=== PATIENT | female | born 1975 | race Caucasian/White ===

== ENCOUNTER 2020-04-29 10:11 | Emergency (ER) | payer OTHER, SELFPAY ==
--- NOTE | ~2020-04-29 | XR_ITS ---
XR hand RT min 3V, XR hand LT min 3V 04/29/2020 10:58 (accession [id number]), 04/29/2020 10:57 (accession [id number]) Indication: Bilateral hand pain after fall Procedure: AP 3 views each hand Comparison: No prior studies for comparison. Findings: There is a nondisplaced intra-articular fracture dorsal base right fifth distal phalanx. No other fractures identified. No foreign bodies. Old right ulnar styloid avulsion fracture. Impression: 1: Nondisplaced intra-articular fracture dorsal base right fifth distal phalanx. Reviewed, dictated and finalized at location A. Impression: 1: Nondisplaced intra-articular fracture dorsal base right fifth distal phalanx . Impression: 1: Nondisplaced intra-articular fracture dorsal base right fifth distal phalanx .
[2020-04-29 10:16] VITALS: BP 152/69; PULSE 102; RESP 18; TEMP 36.8; O2SAT 100
[2020-04-29 10:30] VITALS: BP 105/70; PULSE 80
--- NOTE | 2020-04-29 10:34 | ED.GENADULT ---
HPI - General Adult General Chief complaint: Extremity Injury, Upper Stated complaint: right hand pinky injury Time Seen by Provider: 04/29/20 10:35 Source: patient and RN notes reviewed Mode of arrival: ambulatory Limitations: no limitations History of Present Illness HPI narrative: 45-year-old female presents with complaints of RT 5th (baby) and LT 3rd (middle) fingers pain and swelling for 1 day. Reina says she tripped over dog and reached out to break her fall and hit hands against wall. Ibuprofen with little relief. Denies numbness or tingling. No weakness of fingers. Denies fever or chills. Denies immobility. Exacerbation is movement and palpation of finger. Relieving factor is rest. Dominant hand is RIGHT HAND. Denies break in skin or drainage. Denies hitting head or loss of consciousness. LMP January or January but is irregular due to chcf usage of Depo-Provera. The patient reports she have not been diagnosed with COVID-19. The patient reports she is not waiting for the results of a COVID-19 lab test. The patient reports she do not have fever, chills, weakness, or fatigue. The patient reports she do not have a new or worsening cough or shortness of breath. Denies chest pain. The patient reports she do not have any rhinorrhea, congestion, sore throat, loss of taste, nausea, vomiting, abdominal pain, and diarrhea. Tolerating po intake well. Denies recent traveling. Denies concerns for COVID-19 or exposures been home with limited outdoor exposure except for essential household needs, work, and return home. At this time, patient is not suspected of having COVID-19. Some parts of this dictation were generated by voice recognition software and may contain typographical and/or grammatical inaccuracies. Related Data Allergies Allergy/AdvReac Type Severity Reaction Status Date / Time No Known Allergies Allergy Verified 04/29/20 10:21 Review of Systems Review of Systems: Narrative: CONSTITUTIONAL: Denies fever, chills, sweats. EYES: Denies visual changes, redness, discharge. ENT: Denies rhinorrhea, congestion, sore throat, otalgia. CARDIOVASCULAR: Denies chest pain, palpitations, edema. RESPIRATORY: Denies dyspnea, wheezing, cough. GASTROINTESTINAL: Denies abdominal pain, nausea, vomiting, diarrhea. GENITOURINARY: Denies dysuria, hematuria, abnormal discharge. SKIN: Denies rash or itching. MUSCULOSKELETAL: Denies acute back pain or myalgia. Complains ofRT 5th (baby) and LT 3rd (middle) fingers pain and swelling. NEUROLOGIC: Denies numbness or focal weakness. PSYCHIATRIC: Denies anxiety or depression. All systems reviewed & are unremarkable except as noted in HPI and below PMFSH Past Medical History Medical History (Updated 04/30/20 @ 00:00 by Juliocesar Stewart) Hand injury RT Surgical History Surgical History (Updated 04/29/20 @ 18:07 by KIKI Kumar) History of cholecystectomy History of hand surgery Right third finger (middle) surgery History of tubal ligation Family History Family History (Updated 04/29/20 @ 18:08 by KIKI Kumar) Father Acute myocardial infarction Hypertension Heart disease Mother Ovarian cancer Social History Social History (Updated 04/29/20 @ 18:09 by KIKI Kumar) Smoking packs per day: 1 Smoking cigarettes per day: 20.0 Years smoked: 20 Smoking pack-years: 20.00 Smoking status: Current every day smoker Tobacco type: cigarettes Second hand tobacco smoke exposure: Yes Alcohol intake: current Substance use: never Gender identity (if verbalized by the patient): Female Comments At time of signature, agree with nurse past medical, surgical, social, and family history. There is no relevant family history pertinent to the presenting complaint. Exam Narrative: Exam Narrative: GENERAL: This is a well-nourished, well-developed patient, in no apparent distress. HEAD: normocephalic, atraumatic.
== END 2020-04-29 11:30 | disposition home or self-care (01) ==
PROVIDERS: Emergency Provider Nurse Practitioner Family
DX: S62.666A Nondisplaced fracture of distal phalanx of right little finger, initial encounter for closed fracture (principal); W01.0XXA Fall on same level from slipping, tripping and stumbling without subsequent striking against object, initial encounter; F17.210 Nicotine dependence, cigarettes, uncomplicated
CPT/HCPCS: 73130; 81025; 99214; G0463

== ENCOUNTER 2020-12-18 15:18 | Emergency (ER) | payer OTHER, SELFPAY ==
--- NOTE | ~2020-12-18 | XR_ITS ---
EXAMINATION: XR ribs RT 2V EXAM DATE: 12/18/2020 15:46 INDICATION: Cough, right-sided back pain since. TECHNIQUE: Frontal projection of the upper right ribs, frontal projection of the lower right ribs, ob lique projection of the right ribs, without chest x-ray(s) for interpretation. Correlation is made to chest x-ray 04/22/2016. FINDINGS: There are no displaced acute right rib fractures identified. There is no soft tissue abno rmality seen. There are cholecystectomy clips. IMPRESSION: No displaced right rib fractures. Reviewed, dictated and finalized at location A.
[2020-12-18 15:25] VITALS: BP 128/89; PULSE 86; RESP 16; TEMP 36.7; O2SAT 98
--- NOTE | 2020-12-18 15:29 | ED.BACK ---
HPI - Back Pain/Injury General Chief Complaint: Back Pain/Injury Stated Complaint: right back rib pain Time Seen by Provider: 12/18/20 15:30 Source: patient and RN notes reviewed Mode of arrival: ambulatory Limitations: no limitations History of Present Illness HPI Narrative: 45-year-old female presents concern for right chest back/rib pain. Reports she was bending over cleaning when she coughed this morning and had sudden pain in the rib area. Reports bending, twisting, deep breathing, coughing exacerbate pain. Reports she took 400 mg ibuprofen without relief. She denies any shortness of breath, recent history of cough or upper respiratory infections. Denies any chest pain. MD elicited complaint: back pain Related Data Allergies Allergy/AdvReac Type Severity Reaction Status Date / Time No Known Allergies Allergy Verified 04/29/20 10:21 Review of Systems Review of Systems: Narrative: CONSTITUTIONAL: Denies malaise, chills, sweats, or fever. ENT: Denies rhinorrhea, congestion, sinus pain, otalgia or sore throat. CARDIOVASCULAR: Denies chest pain, palpitations, or edema. RESPIRATORY: Denies cough or dyspnea. GASTROINTESTINAL: Denies abdominal pain, nausea, vomiting, diarrhea GENITOURINARY: Denies dysuria or hematuria. SKIN: Denies bruising, redness, rash MUSCULOSKELETAL: Reports right backslash rib pain NEUROLOGIC: Denies numbness, weakness All systems reviewed & are unremarkable except as noted in HPI and below PMFSH Past Medical History Medical History (Updated 12/18/20 @ 15:57 by Ladonna Winslow NP) Hand injury RT Surgical History Surgical History (Updated 04/29/20 @ 18:07 by KIKI Kumar) History of cholecystectomy History of hand surgery Right third finger (middle) surgery History of tubal ligation Family History Family History (Updated 04/29/20 @ 18:08 by KIKI Kumar) Father Acute myocardial infarction Hypertension Heart disease Mother Ovarian cancer Social History Social History (Updated 04/29/20 @ 18:09 by KIKI Kumar) Smoking packs per day: 1 Smoking cigarettes per day: 20.0 Years smoked: 20 Smoking pack-years: 20.00 Smoking status: Current every day smoker Tobacco type: cigarettes Second hand tobacco smoke exposure: Yes Alcohol intake: current Substance use: never Gender identity (if verbalized by the patient): Female Comments At time of signature, agree with nursing past medical, surgical, social and family history. There is no relevant family history pertinent to the presenting complaint Exam Narrative: Exam Narrative: GENERAL: Well-appearing, well-nourished, and in no acute distress. HEAD: Normocephalic, atraumatic. EYES: PERRLA, conjunctivae clear ENT: Nares clear. Mucous membranes moist. NECK: Supple. CHEST: No respiratory distress. Clear to auscultation. No bony deformities, no asymmetry. Speaks in full sentences. HEART: Regular rate and rhythm. No murmur heard. EXTREMITIES: Normal range of motion. No edema. Normal strength and sensation. Tenderness upon palpation to right posterior ribs SKIN: Warm, dry, no rash. NEURO: Alert and oriented x3. PSYCH: Normal mood and affect Course Course Emergency Course: Patient is aware of diagnosis, understands and agrees to treatment plan. Anticipatory guidance given. Patient agrees to follow-up as directed and is aware of reasons to seek care at the emergency department. Portions of this record may have been created with voice recognition software Vital Signs Vital signs: Reviewed. MDM - Back Pain/Injury MDM Narrative Medical decision making narrative: No risk factors or findings concerning for epidural abscess, diskitis, vertebral osteomyelitis, cord compression, cauda equina, vertebral fracture or bone malignancy, AAA, or pyelonephritis. Patient instructed to consider further imaging and workup through their primary care physician as an outpatient if symptoms
== END 2020-12-18 16:05 | disposition home or self-care (01) ==
PROVIDERS: Emergency Provider Nurse Practitioner
DX: R07.81 Pleurodynia (principal); F17.210 Nicotine dependence, cigarettes, uncomplicated
CPT/HCPCS: 71100; 99213; G0463

== ENCOUNTER 2021-05-05 14:08 | Emergency (ER) | payer OTHER, SELFPAY ==
--- NOTE | ~2021-05-05 | XR_ITS ---
EXAMINATION: XR ribs LT 2V INDICATION: Left rib pain TECHNIQUE: 3 views of the left ribs were obtained. COMPARISON: None. FINDINGS: No displaced rib fracture is identified. The visualized lungs are free of acute opacities. There is no pleural effusion or pneumothorax. The cardiomediastinal silhouette is normal. IMPRESSION: 1. No acute cardiopulmonary abnormality or evidence of displaced rib fracture. Reviewed, dictated and finalized at location A.
[2021-05-05 14:15] VITALS: BP 113/84; PULSE 104; RESP 16; TEMP 36.9; O2SAT 99
--- NOTE | 2021-05-05 14:36 | ED.BACK ---
HPI - Back Pain/Injury General Chief Complaint: Wound/Laceration Stated Complaint: rib inj History of Present Illness HPI Narrative: This is a 46-year-old female comes in complaining of rib pain states that she was climbing in a car and she heard a pop and she has been having rib pain it hurts when she takes a deep breath patient is worried that she may have a fracture Related Data Home Medications Medication Instructions Recorded Confirmed No Home Medications 05/05/21 05/05/21 Allergies Allergy/AdvReac Type Severity Reaction Status Date / Time No Known Allergies Allergy Verified 05/05/21 14:17 Review of Systems Constitutional: Comments: CONSTITUTIONAL: Denies fever, chills, or sweats. EYES: Denies visual changes, redness, or discharge. ENT: Denies rhinorrhea, congestion, sore throat, or otalgia. CARDIOVASCULAR:Denies chest pain, palpitations, or edema. Rib pain RESPIRATORY: Denies cough or dyspnea. GASTROINTESTINAL: Denies abdominal pain, nausea, vomiting, or diarrhea. GENITOURINARY: Denies dysuria or hematuria. SKIN:[Denies rash or itching. MUSCULOSKELETAL:Denies back pain, joint pain, or myalgia. NEUROLOGIC: Denies headache, numbness, or weakness. PSYCHIATRIC:Denies anxiety or depression [facility] Past Medical History Medical History (Updated 05/06/21 @ 00:01 by Juliocesar Stewart) Hand injury RT Surgical History Surgical History (Updated 04/29/20 @ 18:07 by KIKI Kumar) History of cholecystectomy History of hand surgery Right third finger (middle) surgery History of tubal ligation Family History Family History (Updated 04/29/20 @ 18:08 by KIKI Kumar) Father Acute myocardial infarction Hypertension Heart disease Mother Ovarian cancer Social History Social History (Updated 04/29/20 @ 18:09 by KIKI Kumar) Smoking packs per day: 1 Smoking cigarettes per day: 20.0 Years smoked: 20 Smoking pack-years: 20.00 Smoking status: Current every day smoker Tobacco type: cigarettes Second hand tobacco smoke exposure: Yes Alcohol intake: current Substance use: never Gender identity (if verbalized by the patient): Female Comments At time as signature, I have reviewed and agree with nursing past medical, social, surgical and family history. Please see nursing chart for further information. There is no relevant family history pertinent to the presenting complaint. Exam Psych: Other: GENERAL:Well-appearing, well-nourished, and in no acute distress. HEAD:Normocephalic, atraumatic. EYES: PERRLA and EOMI. ENT: Nares clear, no rhinorrhea or epistaxis. Mucous membranes moist. NECK: Supple. CHEST: Clear to auscultation. No respiratory distress. HEART: Regular rate and rhythm Normal peripheral pulses. ABDOMEN: Soft, nontender, nondistended, normal active bowel sounds. EXTREMITIES: Normal range of motion. No edema. SKIN: Warm, dry, no rash. NEURO: No focal deficits. Alert and oriented x3. 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 I would is fine she is she is retired Vital Signs Vital signs: Vital Signs Temperature 98.5 F 05/05/21 14:15 Pulse Rate 104 H 05/05/21 14:15 Respiratory Rate 16 05/05/21 14:15 Blood Pressure 113/84 05/05/21 14:15 Pulse Oximetry 99 05/05/21 14:15 Temperature 98.5 F 05/05/21 14:15 Pulse Rate 104 H 05/05/21 14:15 Respiratory Rate 16 05/05/21 14:15 Blood Pressure 113/84 05/05/21 14:15 Pulse Oximetry 99 05/05/21 14:15 MDM - Back Pain/Injury Differential Diagnosis Differential diagnosis: Likely lumbar radiculopathy and thoracic back pain Discharge Plan Discharge Clinical Impression: Muscle ache, Pain in rib Patient Disposition: Home, Self-Care Condition: Stable Instructions: Antibiotic Form, Musculoskeletal Pain (ED), Muscle Spasm (ED) Additional Instructions: Ice to the area 20-30 minutes 4-6 times a day Tylenol for lesser pain Ibuprofen re
== END 2021-05-05 15:10 | disposition home or self-care (01) ==
PROVIDERS: Emergency Provider Nurse Practitioner Family
DX: R07.81 Pleurodynia (principal); F17.210 Nicotine dependence, cigarettes, uncomplicated
CPT/HCPCS: 71100; 99213; G0463

== ENCOUNTER 2021-08-09 08:23 | Emergency (ER) | payer OTHER, SELFPAY ==
--- NOTE | ~2021-08-09 | XR_ITS ---
EXAMINATION: XR chest 2V DATE: 08/09/2021 09:17 INDICATION: Expiratory wheezing. Post COVID-19 pneumonia. TECHNIQUE: Frontal and lateral views of the chest were obtained. COMPARISON: Left rib radiographs 05/05/2021 FINDINGS: The chest demonstrates clear lungs without pneumonia, pleural effusion, or pneumothorax. Th e heart size is normal. Surgical clips in the right upper quadrant are likely from cholecystectomy. IMPRESSION: 1. No acute cardiopulmonary disease. Reviewed, dictated and finalized at location A. ANALYSIS MANAGER
[2021-08-09 08:34] VITALS: BP 128/105; PULSE 98; RESP 16; TEMP 36.7; O2SAT 98
--- NOTE | 2021-08-09 08:46 | ED.EAR ---
HPI - Ear Problem General Chief complaint: Upper Respiratory Infection Stated complaint: Ear Pain Time Seen by Provider: 08/09/21 08:48 Source: patient and RN notes reviewed Mode of arrival: ambulatory Limitations: no limitations History of Present Illness HPI Narrative: 46-year-old female presented for complaints of body aches, ears ringing, dizziness, and increased sinus pressure for the last 3 days. She endorses recent diagnosis of Covid about 1 week ago, and states 2 days ago she was tested negative. She endorses occasional chest tightness, wheezing, and increased mucus production with cough. She notes she smokes 1 pack/day. She has not been vaccinated for Covid or flu. She has been taking Tylenol and NyQuil with no relief in symptoms. MD Complaint: ear pain Related Data Allergies Allergy/AdvReac Type Severity Reaction Status Date / Time No Known Allergies Allergy Verified 08/09/21 08:42 Review of Systems Review of Systems: CONSTITUTIONAL: Denies malaise, chills, sweats, or fever. EYES: Denies visual changes, redness, or discharge. ENT: Reports ear pain rhinorrhea, congestion, sinus pain, and sore throat. CARDIOVASCULAR: Denies chest pain, palpitations, or edema. RESPIRATORY: Endorses cough and dyspnea. GASTROINTESTINAL: Denies abdominal pain, nausea, vomiting, diarrhea SKIN: Denies rash or itching. MUSCULOSKELETAL: Denies myalgia. NEUROLOGIC: Denies headache. All systems reviewed & are unremarkable except as noted in HPI and below PMFSH Past Medical History Medical History (Updated 08/09/21 @ 09:28 by Dedra Gonzalez APRN) Hand injury RT Surgical History Surgical History (Updated 04/29/20 @ 18:07 by KIKI Kumar) History of cholecystectomy History of hand surgery Right third finger (middle) surgery History of tubal ligation Family History Family History (Updated 04/29/20 @ 18:08 by KIKI Kumar) Father Acute myocardial infarction Hypertension Heart disease Mother Ovarian cancer Social History Social History (Updated 04/29/20 @ 18:09 by KIKI Kumar) Smoking packs per day: 1 Smoking cigarettes per day: 20.0 Years smoked: 20 Smoking pack-years: 20.00 Smoking status: Current every day smoker Tobacco type: cigarettes Second hand tobacco smoke exposure: Yes Alcohol intake: current Substance use: never Gender identity (if verbalized by the patient): Female Comments At time of signature, agree with nursing past medical, surgical, social and family history. There is no relevant family history pertinent to the presenting complaint Exam Narrative: GENERAL: Well-appearing, well-nourished, and in no acute distress. HEAD: Normocephalic EYES: PERRLA, conjunctivae clear ENT: Nares clear. Mucous membranes moist. TM pearly alonzo with dull light reflex bilaterally; no tragal tenderness. Oropharynx not erythematous without lesions. Tonsils not enlarged and without exudate, no drooling, no hoarseness, no trismus, uvula midline. NECK: Supple. No lymphadenopathy CHEST: Clear to auscultation, breath sounds equal. No wheezing, rhonchi, rales, or stridor. No respiratory distress, speaks in full sentences. HEART: Regular rate and rhythm. No murmur heard. SKIN: Warm, dry, no rash. NEURO: Alert and oriented x3. PSYCH: Normal mood and affect Course Course Emergency Course: Patient is aware of diagnosis, understands and agrees to treatment plan. Anticipatory guidance given. Patient agrees to follow-up as directed and is aware of reasons to seek care at the emergency department. Portions of this record may have been created with voice recognition software Level of Care: Express Care Visit Vital Signs Vital signs: Vital Signs Temperature 98.1 F 08/09/21 08:34 Pulse Rate 98 08/09/21 08:34 Respiratory Rate 16 08/09/21 08:34 Blood Pressure 128/105 H 08/09/21 08:34 Pulse Oximetry 98 08/09/21 08:34 Temperature 98.1 F
[2021-08-09 09:32] VITALS: BP 132/102
== END 2021-08-09 09:32 | disposition home or self-care (01) ==
PROVIDERS: Emergency Provider Nurse Practitioner Family
DX: J06.9 Acute upper respiratory infection, unspecified (principal); F17.210 Nicotine dependence, cigarettes, uncomplicated; Z86.16 Personal history of COVID-19
CPT/HCPCS: 71046; 99213; G0463

== ENCOUNTER 2021-09-10 08:10 | Emergency (ER) | payer OTHER, SELFPAY ==
[2021-09-10 08:18] VITALS: BP 118/75; PULSE 87; RESP 20; TEMP 36.4; O2SAT 100
--- NOTE | 2021-09-10 10:14 | ED.BACK ---
HPI - Back Pain/Injury General Chief Complaint: Back Pain/Injury Stated Complaint: Back pain Time Seen by Provider: 09/10/21 08:33 Source: patient and RN notes reviewed Mode of arrival: ambulatory Limitations: no limitations History of Present Illness HPI Narrative: Patient presents today complaining of right-sided low back pain that radiates to the right buttock and hip. Pain started suddenly 3 days ago which he rolled over in bed. Denies numbness or tingling in the legs or feet or genitals. Denies any loss of bowel or bladder control. She currently rates her pain 6/10, which increases with standing or walking. She has tried heat, Tylenol or ibuprofen without relief. MD elicited complaint: back pain Related Data Allergies Allergy/AdvReac Type Severity Reaction Status Date / Time No Known Allergies Allergy Verified 08/09/21 08:42 Review of Systems Review of Systems: CONSTITUTIONAL: Denies body aches, fever, chills, or sweats. EYES: Denies visual changes, redness, or discharge. ENT: Denies rhinorrhea, congestion, sore throat, or otalgia. CARDIOVASCULAR: Denies chest pain, palpitations, or edema. RESPIRATORY: Denies cough or dyspnea. GASTROINTESTINAL: Denies abdominal pain, nausea, vomiting, or diarrhea. GENITOURINARY: Denies dysuria or hematuria. SKIN: Denies rash, itching, or wounds. MUSCULOSKELETAL: Denies joint pain, or myalgia.+ Back pain NEUROLOGIC: Denies headache, numbness, tingling, or weakness. PSYCH: Denies depression or anxiety. [facility] Past Medical History Medical History Hand injury RT Surgical History Surgical History History of cholecystectomy History of hand surgery Right third finger (middle) surgery History of tubal ligation Family History Family History Father Acute myocardial infarction Hypertension Heart disease Mother Ovarian cancer Social History Social History Smoking packs per day: 1 Smoking cigarettes per day: 20.0 Years smoked: 20 Smoking pack-years: 20.00 Smoking status: Current every day smoker Tobacco type: cigarettes Second hand tobacco smoke exposure: Yes Alcohol intake: current Substance use: never Gender identity (if verbalized by the patient): Female Comments At time of signature, I have reviewed and agree with nursing past medical, surgical, social and family history unless otherwise noted. Please see nursing chart for further information. There is no relevant family history pertinent to the presenting complaint Exam Narrative: GENERAL: Well-appearing, well-nourished, and in no acute distress. HEAD: Normocephalic, atraumatic. EYES: EOMI. No redness or drainage. Conjunctivae normal. ENT: Mucous membranes pink and moist. NECK: Normal AROM. CHEST: No respiratory distress. MUSCULOSKELETAL: No bony tenderness of the spine. Right lower lumbar paraspinal muscle tenderness with palpable muscle spasm. Tenderness extends to the right SI joint and buttock. Distal sensation intact. Refill normal. Pedal pulses normal. Dorsiflexion and plantarflexion strong and equal against resistance. Patellar reflexes normal. EXTREMITIES: Normal range of motion. No edema. SKIN: Warm, dry, no rash. Capillary refill normal. Normal skin turgor. NEURO: No focal deficits. Alert and oriented x3. Gait steady. PSYCH: Normal affect. No signs of depression or anxiety. Course Course Level of Care: Express Care Visit Vital Signs Vital signs: Vital Signs Temperature 97.6 F 09/10/21 08:18 Pulse Rate 87 09/10/21 08:18 Respiratory Rate 20 09/10/21 08:18 Blood Pressure 118/75 09/10/21 08:18 Pulse Oximetry 100 09/10/21 08:18 Temperature 97.6 F 09/10/21 08:18 Pulse Rate 87 09/10/21 08:18
== END 2021-09-10 09:14 | disposition home or self-care (01) ==
PROVIDERS: Emergency Provider Nurse Practitioner
DX: M54.41 Lumbago with sciatica, right side (principal); F17.210 Nicotine dependence, cigarettes, uncomplicated
CPT/HCPCS: 99213; G0463

== ENCOUNTER 2022-06-12 10:45 | Emergency (ER) | payer OTHER, SELFPAY ==
--- NOTE | 2022-06-12 10:54 | ED.URI ---
HPI - URI/Sore Throat General Chief Complaint: Neck Pain/Injury Stated Complaint: sore gums, swollen lymph node Time Seen by Provider: 06/12/22 10:54 Source: patient and RN notes reviewed History of Present Illness HPI Narrative: patient is a 47-year-old female who presents to urgent care with complaints of sore gums on the right lower as well as a swollen lymph node. Patient states she noticed it on Thursday and she has been taking ibuprofen. Patient denies any fever, nausea or vomiting. No other acute complaints. No acute distress noted. Patient aware of the plan of care. Some parts of this dictation were generated by voice recognition software and may contain typographical and/or grammatical inaccuracies. Related Data Home Medications Medication Instructions Recorded Confirmed valacyclovir 500 mg tablet 500 mg PO DAILY 06/12/22 06/12/22 Allergies Allergy/AdvReac Type Severity Reaction Status Date / Time No Known Allergies Allergy Verified 08/09/21 08:42 Review of Systems Review of Systems: CONSTITUTIONAL: Denies fever, chills, or sweats. EYES: Denies visual changes, redness, or discharge. ENT: Denies rhinorrhea, congestion, sore throat, or otalgia. Reports of right lower gum pain and right lymph node plan CARDIOVASCULAR: Denies chest pain, palpitations, or edema. RESPIRATORY: Denies cough or dyspnea. GASTROINTESTINAL: Denies abdominal pain, nausea, vomiting, or diarrhea. GENITOURINARY: Denies dysuria or hematuria. SKIN: Denies rash or itching. MUSCULOSKELETAL: Denies back pain, joint pain, or myalgia. NEUROLOGIC: Denies headache, numbness, or weakness. All other systems reviewed are negative, except as documented in HPI. [facility] Past Medical History Medical History Hand injury RT Surgical History Surgical History History of cholecystectomy History of hand surgery Right third finger (middle) surgery History of tubal ligation Family History Family History Father Acute myocardial infarction Hypertension Heart disease Mother Ovarian cancer Social History Social History Smoking packs per day: 1 Smoking cigarettes per day: 20.0 Years smoked: 20 Smoking pack-years: 20.00 Smoking status: Current every day smoker Tobacco type: cigarettes Second hand tobacco smoke exposure: Yes Alcohol intake: current Substance use: never Gender identity (if verbalized by the patient): Female Comments At the time of my signature, I reviewed and agree with the nursing past medical, surgical, social, and family history. There is no relevant family history pertinent to the patient complaint. Exam Narrative: GENERAL: This is a well-nourished, well-developed patient, in no apparent distress. HEAD: normocephalic, atraumatic. EYES: PERRL. Sclera clear/white. Vision is grossly intact. EARS: External ears normal, auditory canals clear and without drainage, TMs normal without perforation. Hearing grossly intact. NOSE: External nose normal with no obvious nasal discharge, nares without redness, no rhinorrhea. THROAT: Mucous membranes moist, posterior pharynx clear. moderate postnasal drainage NECK: Neck supple, moderate tender right submandibular lymphadenopathy CARDIOVASCULAR: Regular rate and rhythm without murmurs, gallops, or rubs. RESPIRATORY: Clear to auscultation. Breath sounds equal bilaterally. No wheezes, rales, or rhonchi. SKIN: warm, intact with no suspicious lesions or rash, good texture and turgor. NEURO: awake, alert, and oriented to person, place and time. There were no obvious focal neurologic abnormalities. EXTREMITIES: No clubbing, cyanosis, or edema. Course Course Level of Care: Express Care Visit Vital Signs Vital signs:
[2022-06-12 11:00] VITALS: BP 127/88; PULSE 90; RESP 14; TEMP 36.2; O2SAT 100
== END 2022-06-12 11:25 | disposition home or self-care (01) ==
PROVIDERS: Emergency Provider Nurse Practitioner Family
DX: K05.10 Chronic gingivitis, plaque induced (principal)
CPT/HCPCS: 87081; 87880; 99213; G0463

== ENCOUNTER 2022-09-01 13:38 | Emergency (ER) | payer OTHER, SELFPAY ==
--- NOTE | 2022-09-01 13:39 | ED.EAR ---
HPI - Ear Problem General Chief complaint: Ear Stated complaint: ear pain Time Seen by Provider: 09/01/22 13:39 Source: patient and RN notes reviewed History of Present Illness HPI Narrative: Patient is a 47-year-old female who presents to urgent care with complaints of right ear pain and popping. Patient states that she woke up with the symptoms late last night. Denies any use [id number] medication. Denies any other upper respiratory complaints. Denies a fever. No other acute complaints. No acute distress noted. Patient aware of the plan of care. Some parts of this dictation were generated by voice recognition software and may contain typographical and/or grammatical inaccuracies. Related Data Home Medications Medication Instructions Recorded Confirmed valacyclovir 500 mg tablet 500 mg PO DAILY 06/12/22 09/01/22 Allergies Allergy/AdvReac Type Severity Reaction Status Date / Time No Known Allergies Allergy Verified 09/01/22 13:44 Review of Systems Review of Systems: CONSTITUTIONAL: Denies fever, chills, or sweats. EYES: Denies visual changes, redness, or discharge. ENT: Denies rhinorrhea, congestion, sore throat. Reports of right otalgia CARDIOVASCULAR: Denies chest pain, palpitations, or edema. RESPIRATORY: Denies cough or dyspnea. GASTROINTESTINAL: Denies abdominal pain, nausea, vomiting, or diarrhea. GENITOURINARY: Denies dysuria or hematuria. SKIN: Denies rash or itching. MUSCULOSKELETAL: Denies back pain, joint pain, or myalgia. NEUROLOGIC: Denies headache, numbness, or weakness. All other systems reviewed are negative, except as documented in HPI. [facility] Past Medical History Medical History Hand injury RT Surgical History Surgical History History of cholecystectomy History of hand surgery Right third finger (middle) surgery History of tubal ligation Family History Family History Father Acute myocardial infarction Hypertension Heart disease Mother Ovarian cancer Social History Social History (Reviewed 09/10/21 @ 10:15 by Nereida L. Mihelcic, STRAIGHT TOOTH GEAR GENERATOR OPERATOR, [employer]) Smoking packs per day: 1 Smoking cigarettes per day: 20.0 Years smoked: 20 Smoking pack-years: 20.00 Smoking status: Current every day smoker Tobacco type: cigarettes Second hand tobacco smoke exposure: Yes Alcohol intake: current Substance use: never Living arrangements: with family Occupation/Education: occupation Gender identity (if verbalized by the patient): Female Comments At the time of my signature, I reviewed and agree with the nursing past medical, surgical, social, and family history. There is no relevant family history pertinent to the patient complaint. Exam Narrative: GENERAL: This is a well-nourished, well-developed patient, in no apparent distress. HEAD: normocephalic, atraumatic. EYES: PERRL. Sclera clear/white. Vision is grossly intact. EARS: External ears normal, auditory canals clear and without drainage, moderately retracted/erythema noted to right TM with moderate eustachian tube dysfunction. Left TM normal without perforation. Hearing grossly intact. NOSE: External nose normal with no obvious nasal discharge, nares without redness, no rhinorrhea. THROAT: Mucous membranes moist, posterior pharynx clear. NECK: Neck supple SKIN: warm, intact with no suspicious lesions or rash, good texture and turgor. NEURO: awake, alert, and oriented to person, place and time. There were no obvious focal neurologic abnormalities. EXTREMITIES: No clubbing, cyanosis, or edema. Course Course Level of Care: Express Care Visit Vital Signs Vital signs: Vital Signs Temperature 98.3 F 09/01/22 13:42 Pulse Rate 100 09/01/22 13:42 Respiratory Rate 16 09/01/22 13:42 Blood Pressure 132/83 09/01/22 13:
[2022-09-01 13:42] VITALS: BP 132/83; PULSE 100; RESP 16; TEMP 36.8; O2SAT 100
== END 2022-09-01 14:23 | disposition home or self-care (01) ==
PROVIDERS: Emergency Provider Nurse Practitioner Family; PCP Emergency Medicine
DX: H66.91 Otitis media, unspecified, right ear (principal); F17.210 Nicotine dependence, cigarettes, uncomplicated
CPT/HCPCS: 99213; G0463

== ENCOUNTER 2023-04-24 09:10 | Emergency (ER) | payer OTHER, SELFPAY ==
[2023-04-24 09:14] VITALS: BP 145/92; PULSE 93; RESP 16; TEMP 36.1; O2SAT 96
--- NOTE | 2023-04-24 09:17 | ED.URI ---
HPI - URI/Sore Throat General Chief Complaint: Upper Respiratory Infection Stated Complaint: Chest Congestion/Cough Time Seen by Provider: 04/24/23 09:17 Source: patient, RN notes reviewed and old records reviewed Mode of arrival: ambulatory Limitations: no limitations History of Present Illness HPI Narrative: 48-year-old female presents to the [facility] with complaints of chest congestion and a cough for about 10 days. Has tried multiple [id number] products. Currently smoker Treatments prior to arrival: cold medicine Related Data Home Medications Medication Instructions Recorded Confirmed valacyclovir 500 mg tablet 500 mg PO DAILY 06/12/22 04/24/23 Allergies Allergy/AdvReac Type Severity Reaction Status Date / Time No Known Allergies Allergy Verified 09/01/22 13:44 Review of Systems Review of Systems: All systems reviewed & are unremarkable except as noted in HPI and below Constitutional: Constitutional: Reports no additional constitutional complaints Eyes: Eyes: Reports no additional eye complaints ENT: Reports system reviewed and no additional complaints, except as documented Cardiovascular: Cardiovascular: Reports no additional cardiovascular complaints, Denies chest pain and Denies dyspnea Respiratory: Respiratory: Reports as per HPI, Reports chest congestion, Reports cough, Denies dyspnea and Reports wheezing Gastrointestinal: Gastrointestinal: Reports no additional gastrointestinal complaints, Denies abdominal pain, Denies nausea and Denies vomiting Musculoskeletal: Musculoskeletal: Reports no additional musculoskeletal complaints Integumentary/Breasts: Skin/Breast: Reports system reviewed and no additional complaints, except as docu Neurologic: Reports system reviewed and no additional complaints, except as documented Psychiatric: Psychiatric: Reports no additional psychiatric complaints Allergic/Immunologic: Allergic/Immunologic: Reports no additional allergic/immunologic complaints [facility] Past Medical History Medical History Hand injury RT Surgical History Surgical History History of cholecystectomy History of hand surgery Right third finger (middle) surgery History of tubal ligation Family History Family History Father Acute myocardial infarction Hypertension Heart disease Mother Ovarian cancer Social History Social History Smoking packs per day: 1 Smoking cigarettes per day: 20.0 Years smoked: 20 Smoking pack-years: 20.00 Smoking status: Current every day smoker Tobacco type: cigarettes Second hand tobacco smoke exposure: Yes Alcohol intake: current Substance use: never Living arrangements: with family Occupation/Education: occupation Gender identity (if verbalized by the patient): Female Comments At the time of my signature, I reviewed and agree with the nursing past medical, surgical, social, and family history. There is no relevant family history pertinent to the patient complaint. Exam Const: General: cooperative, comfortable, no acute distress, well developed, alert, ill appearing chronically and well nourished Nutritional Appearance: well nourished Orientation/consciousness: patient oriented x3 Limitations: no limitations HENMT: Head: normal to inspection Ears: hearing grossly normal bilaterally, external ears normal, TM's normal bilaterally and EAC's normal Face/Nose/Sinus: Normal external nose present, Normal nares present, Normal nasal mucous membranes and turbinates present, normal facial exam and face symmetric Face and sinus: normal facial exam and face symmetric Mouth: Yes Normal oral and palatal mucosa present, Yes lip normal and Yes moist mucous membranes Throat: posterior oropharynx normal,
== END 2023-04-24 09:41 | disposition home or self-care (01) ==
PROVIDERS: Emergency Provider Nurse Practitioner
DX: J40 Bronchitis, not specified as acute or chronic (principal); F17.210 Nicotine dependence, cigarettes, uncomplicated
CPT/HCPCS: 99213; G0463

== ENCOUNTER 2023-06-12 09:41 | Emergency (ER) | payer OTHER, SELFPAY ==
[2023-06-12 09:45] VITALS: BP 145/88; PULSE 89; RESP 18; TEMP 36.3; O2SAT 100
--- NOTE | 2023-06-12 09:58 | ED.FALL ---
HPI - Fall General Chief Complaint: Fall Stated Complaint: Fall Injury Source: patient and RN notes reviewed History of Present Illness HPI Narrative: 48 yo F presents to urgent care stating she fell late Thursday night, coming home from [employer]. Pt states she was drinking alcohol that night and states she missed a step going into her laundry room. Pt presents with contusion to left lower orbit, right knee, and tenderness to left lateral ribs, and left posterior shoulder. Pt denies any LOC, neck pain, N/V/D, abdominal pain, chest pain, SOB, visual disturbance, or dizziness. Pt took a Tylenol yesterday. Pt states she felt fine yesterday morning but then went to work for 11 hours yesterday and came home very sore. Related Data Allergies Allergy/AdvReac Type Severity Reaction Status Date / Time No Known Allergies Allergy Verified 09/01/22 13:44 Review of Systems Review of Systems: Pertinent positives and pertinent negatives per HPI. [facility] Past Medical History Medical History Hand injury RT Surgical History Surgical History History of cholecystectomy History of hand surgery Right third finger (middle) surgery History of tubal ligation Family History Family History Father Acute myocardial infarction Hypertension Heart disease Mother Ovarian cancer Social History Social History Smoking packs per day: 1 Smoking cigarettes per day: 20.0 Years smoked: 20 Smoking pack-years: 20.00 Smoking status: Current every day smoker Tobacco type: cigarettes Second hand tobacco smoke exposure: Yes Alcohol intake: current Substance use: never Living arrangements: with family Occupation/Education: occupation Gender identity (if verbalized by the patient): Female Comments At the time of my signature, I reviewed and agree with the nursing past medical, surgical, social, and family history. There is no relevant family history pertinent to the patient complaint. Exam Narrative: GENERAL: This is a well-nourished, well-developed patient, in no apparent distress. HEAD: normocephalic, atraumatic. EYES: Sclera clear/white. Vision is grossly intact. PERRL. Left lower orbit mild ecchymosis and tenderness and mild edema. EARS: External ears normal, auditory canals clear and without drainage, TMs normal without perforation. Hearing grossly intact. NOSE: External nose normal with no obvious nasal discharge, nares without redness, no rhinorrhea. THROAT: Mucous membranes moist, posterior pharynx clear. NECK: Neck supple, non-tender without lymphadenopathy, masses or thyromegaly. CARDIOVASCULAR: Regular rate and rhythm without murmurs, gallops, or rubs. RESPIRATORY: Clear to auscultation. Breath sounds equal bilaterally. No wheezes, rales, or rhonchi. GASTROINTESTINAL: Abdomen soft, non-tender, nondistended. Bowel sounds are active. No hepato-splenomegaly, or palpable masses. No guarding. SKIN: warm, intact with no suspicious lesions or rash, good texture and turgor. NEURO: awake, alert, and oriented to person, place and time. There were no obvious focal neurologic abnormalities. EXTREMITIES: Ecchymosis, tenderness, and mild edema to right patella. Pt has full ROM of right knee and right shoulder. Tenderness to left posterior shoulder. Tenderness to left lateral, mid, rib. BACK: Nontender without deformity or crepitus. No flank tenderness. Course Course Level of Care: Express Care Visit Vital Signs Vital signs: Vital Signs Temperature 97.3 F L 06/12/23 09:45 Pulse Rate 89 06/12/23 09:45 Respiratory Rate 18 06/12/23 09:45 Blood Pressure 145/88 H 06/12/23 09:45 Pulse Oximetry 100 06/12/23 09:45 Oxygen Delivery Room Air 06/12/23 09:45 Temperature 97.3
== END 2023-06-12 10:11 | disposition home or self-care (01) ==
PROVIDERS: Emergency Provider Nurse Practitioner Family
DX: S05.12XA Contusion of eyeball and orbital tissues, left eye, initial encounter (principal); S20.212A Contusion of left front wall of thorax, initial encounter; S80.01XA Contusion of right knee, initial encounter; S43.402A Unspecified sprain of left shoulder joint, initial encounter; W19.XXXA Unspecified fall, initial encounter; F17.210 Nicotine dependence, cigarettes, uncomplicated
CPT/HCPCS: 99213; G0463

== ENCOUNTER 2024-06-29 12:25 | Emergency (ER) | payer MEDICAID, SELFPAY ==
--- NOTE | ~2024-06-29 | XR_ITS ---
XR foot LT min 3V Ordering provider: Mady Amaro NP History: . LT lat foot pain. hit on door last night . Comparison: None. FINDINGS: BONES: Fracture of the proximal metaphysis of the proximal phalanx of the little toe. No displacement of the bones. Calcaneus spur. JOINT SPACES: Narrowing of the proximal and distal interphalangeal joint. No tarsal coalition. SOFT TISSUES: Normal. IMPRESSION: Fracture of the proximal metaphysis of the little toe proximal phalanx. Reviewed, dictated and finalized at location A. EGE TEACHER
[2024-06-29 12:33] VITALS: BP 146/93; PULSE 95; RESP 18; TEMP 36.7; O2SAT 99
--- NOTE | 2024-06-29 13:09 | ED_ITS ---
HPI - Extremity Injury (Lower) General Chief Complaint: Extremity Injury, Lower Stated Complaint: Lt Foot Injury Time Seen by Provider: 06/29/24 12:40 Source: patient, RN notes reviewed and old records reviewed Mode of arrival: ambulatory (placed in wheelchair on arrival) Limitations: no limitations History of Present Illness HPI Narrative: 49 year old female who presents to [facility] care with complaints of injury to her left foot that occurred last night when she was opening door to let dogs in and they jumped on outside of door causing it to forcefully come back and hit her left foot. Patient has pain with some swelling to her lateral foot with bruising noted. Patient reports that she can not put weight on her left foot.Patient has strong left pedal pulse with foot warm and pink.Patient reports that she has taken Ibuprofen for her pain. MD complaint: foot injury (left) Onset (ago): day(s) (last night) Injury: Left: foot Type of Injury: blunt Place: home Severity scale (1-10): 9 Treatments prior to arrival: NSAIDS and other (elevation) Related Data Home Medications Medication Instructions Recorded Confirmed No Home Medications 06/29/24 06/29/24 Allergies Allergy/AdvReac Type Severity Reaction Status Date / Time No Known Allergies Allergy Verified 06/29/24 13:03 Review of Systems Review of Systems: CONSTITUTIONAL: Denies fever, chills, or sweats. EYES: Denies visual changes, redness, or discharge. ENT: Denies rhinorrhea, congestion, sore throat, or otalgia. CARDIOVASCULAR: Denies chest pain, palpitations, or edema. RESPIRATORY: Denies cough or dyspnea. GASTROINTESTINAL: Denies abdominal pain, nausea, vomiting, or diarrhea. GENITOURINARY: Denies dysuria or hematuria. SKIN: Denies rash or itching. MUSCULOSKELETAL: Denies back pain,positive for left lateral foot pain and swelling with bruising over 5th toe., or myalgia. NEUROLOGIC: Denies headache, numbness, or weakness. PSYCHIATRIC: Denies anxiety or depression. All systems reviewed & are unremarkable except as noted in HPI and below PMFSH Past Medical History Medical History Hand injury RT Surgical History Surgical History History of cholecystectomy History of hand surgery Right third finger (middle) surgery History of tubal ligation Family History Family History Father Acute myocardial infarction Hypertension Heart disease Mother Ovarian cancer Social History Social History Smoking packs per day: 1 Smoking cigarettes per day: 20.0 Years smoked: 20 Smoking pack-years: 20.00 Smoking status: Current every day smoker Tobacco type: cigarettes Second hand tobacco smoke exposure: Yes Alcohol intake: current Substance use: never Living arrangements: with family Occupation/Education: occupation Gender identity (if verbalized by the patient): Female Comments At time of signature, agree with nursing past medical, surgical, social and family history. There is no relevant family history pertinent to the presenting complaint Exam Narrative: GENERAL: Well-appearing, well-nourished, and in some acute distress related to her pain. HEAD: Normocephalic, atraumatic. EYES: PERRLA and EOMI. ENT: Nares clear, no rhinorrhea or epistaxis. Mucous membranes moist. NECK: Supple.no lymphadenopathy CHEST: Clear to auscultation. No respiratory distress.SAO2 99% on room air HEART: Regular rate and rhythm. No murmur heard. Normal peripheral pulses. ABDOMEN: Soft, nontender, nondistended, normal active bowel sounds. EXTREMITIES: Normal range of motion. No edema.Exception noted to left lateral foot with swelling and pain with bruising over 5th toe region, strong pedal pulse present.foot warm and pink SKIN: Warm, dry, no rash. NEURO: No focal deficits. Alert and oriented x3. Course Course Emergency Course: Patient is aware of diagnosis, understands and agrees to treatment plan.? Anticipatory guidance given.? Patient agrees to follow-up as directed and is aware of reasons to seek care at the emergency department. Portions of this record may have been created with voice recognition software Level of Care: Express Care Visit Vital Signs Vital signs: Vital Signs Temperature 36.7 C 06/29/24 12:33 Pulse Rate 95 06/29/24 12:33 Respiratory Rate 18 06/29/24 12:33 Blood Pressure 146/93 H 06/29/24 12:33 Pulse Oximetry 99 06/29/24 12:33 Oxygen Delivery Room Air 06/29/24 12:33 Temperature 36.7 C 06/29/24 12:33 Pulse Rate 95 06/29/24 12:33 Respiratory Rate 18 06/29/24 12:33 Blood Pressure 146/93 H 06/29/24 12:33 Pulse Oximetry 99 06/29/24 12:33 Oxygen Delivery Room Air 06/29/24 12:33 Reviewed MDM - Extremity Injury (Lower) Differential Diagnosis Differential diagnosis: Likely fracture of toe and other (ffoot fracture, contusion to left foot, pain left foot.) Medical Records Attestation: I reviewed the patient's medical records. Imaging Data Attestation: I personally reviewed and interpreted this imaging study as rubina delgadillo: My impression: nondisplaced fracture of proximal metaphysis of the left little toe proximal phalanx Radiologist's impression: [place] [address] [place] [address] XRay Report Signed Patient: Reina Gaines : 1975 MR#: [id number] Age: 49 Acct:[id number] Loc: [facility] ADM Date: 06/29/24Attending Dr: Ordering Physician: Mady Amaro APRN Date of Service: 06/29/24 Procedure(s): XR foot LT min 3V Accession Number(s): [id number] cc: Mady Amaro APRN; UNKNOWN,DOCTOR~ XR foot LT min 3V Ordering provider: Mady Amaro NP History: . LT lat foot pain. hit on door last night . Comparison: None. FINDINGS: BONES: Fracture of the proximal metaphysis of the proximal phalanx of the little toe. No displacement of the bones. Calcaneus spur. JOINT SPACES: Narrowing of the proximal and distal interphalangeal joint. No tarsal coalition. SOFT TISSUES: Normal. IMPRESSION: Fracture of the proximal metaphysis of the little toe proximal phalanx. Reviewed, dictated and finalized at location A. R INSTALLATION CREW SUPERVISOR Dictated By: Julio Erazo MD 06/29/24 1247 Signed By: <Electronically signed by Julio Erazo MD in OV> Critical Care Time Critical Care Time Critical Care Time: No Discharge Plan Discharge Clinical Impression: Closed fracture of fifth toe of left foot Patient Disposition: Home, Self-Care Condition: Stable Instructions: Antibiotic Form, Toe Fracture (ED) Additional Instructions: Elastic wrap and postop shoe to left foot crutches as needed with gradual increase in weight left foot Tylenol Arthritis 650 mg 1 tablet every 8 hours for pain control Ibuprofen regularly for the next 2-3 days for the inflammation 600 mg 3-4 times daily for pain control with food Follow-up with orthopedic surgeon or mortgage loan specialist if any further problems or concerns Follow-up with PCP if further problems or concerns Ice to the area 20-30 minutes 4-6 times a day Elevate above heart If your symptoms persist, change or worsen significantly before you can contact your personal physician then please, without delay, go to the emergency department for further evaluation. Follow-up with PCP in 7-10 days or sooner if needed Follow up with PCP soon in regards to your blood pressure which is elevated above threshold for referral. Blood pressure above 120/80 may indicate pre- hypertension. 146/93 Prescriptions: No Action No Home Medications Follow-up/Referrals: UNKNOWN,DOCTOR [Primary Care Provider] - Time of Disposition: 13:13 Quality [place] Coma Scale Eyes: Open Verbal: Oriented and Alert Motor: Follows Commands Lala Coma Total Score: 15
== END 2024-06-29 13:15 | disposition home or self-care (01) ==
PROVIDERS: Emergency Provider Registered Nurse
DX: S92.512A Displaced fracture of proximal phalanx of left lesser toe(s), initial encounter for closed fracture (principal); W20.8XXA Other cause of strike by thrown, projected or falling object, initial encounter; F17.210 Nicotine dependence, cigarettes, uncomplicated
CPT/HCPCS: 73630; 99214; G0463